=== PATIENT | female | born 1995 | race Caucasian/White ===

== ENCOUNTER 2017-07-23 22:37 | Emergency (ER) | payer SELFPAY ==
[~2017-07-23] VITALS: Ht 165.1 cm; Wt 49.9 kg
--- NOTE | 2017-07-23 23:11 | Emergency Room Report ---
History of Present Illness General Chief Complaint: Complications Source: Patient Present Illness HPI Vaginal spotting Patient reports being at doctor's office today had ultrasound performed which showed approximately eight-week Later on in the discussion patient now reports that she was at [facility] with possibility of having However she did not go through with that and was leading to return on Saturday Patient did have a talk ultrasound performed she is a with a previous medical several years ago The son reports 3/10 cramping lower suprapubic area denies any vomiting or diarrhea denies any chest pressures of breath Allergies: Coded Allergies: No Known Allergies (Unverified , 07/23/17) Patient History Past Medical History: see triage record Pertinent Family History: none Now: Yes : 2 Para: 0 Reviewed Nursing Documentation: PMH: Agreed, PSxH: Agreed Nursing Documentation-PMH Past Medical History: No Stated History Review of Systems All Other Systems: negative except mentioned in HPI Physical Exam Vital Signs Date Time Temp Pulse Resp B/P (MAP) Pulse Ox O2 Delivery O2 Flow Rate FiO2 07/23/17 22:42 97.7 70 20 127/75 99 Room Air Sp02 EP Interpretation: reviewed, normal General Appearance: well appearing, no apparent distress Head: normocephalic, atraumatic Eyes: bilateral eye PERRL, bilateral eye EOMI ENT: hearing grossly normal, normal pharynx, TMs + canals normal, uvula midline Neck: full range of motion, supple, no meningismus, no bony tend Respiratory: lungs clear, normal breath sounds, no rhonchi, no respiratory distress, no retraction, no accessory muscle use Cardiovascular #1: normal peripheral pulses, regular rate, rhythm, no edema, no gallop, no JVD, no murmur Gastrointestinal: normal bowel sounds, non tender, soft, no mass, no organomegaly, non-distended, no guarding, no hernia, no pulsatile mass, no rebound Genitourinary: no CVA tenderness Musculoskeletal: normal inspection Neurologic: oriented x3, responsive, bridge rigger III-XII nml as tested, motor strength/ tone normal, sensory intact Psychiatric: mood/affect normal Skin: normal color, no rash, warm/dry, palpation normal Lymphatic: normal inspection, no adenopathy Medical Decision Making Diagnostic Impression: Primary Impression: Threatened ER Course With the patient's history and examination, multiple differentials considered, including but not limited to , ectopic , ovarian torsion, gastritis, cholecystitis, pancreatitis, appendicitis Patient's ultrasound was performed as we do not have any official report from her previous that was done earlier today There is an intrauterine seen with heart tones There was some complication obtaining the patient's full blood work therefore we did not have a beta Quant, however the patient did have blood work obtained earlier this morning and will have close outpatient followup, , Labs Test 07/23/17 22:45 Urine Color Yellow Urine Appearance Clear Urine pH 6 (4.5-8.0) Urine Specific [place] 1.025 (1.005-1.035) Urine Protein Negative (NEGATIVE) Urine Glucose (UA) Negative (NEGATIVE) Urine Ketones Negative (NEGATIVE) Urine Occult Blood 4+ (NEGATIVE) Urine Nitrite Negative (NEGATIVE) Urine Bilirubin Negative (NEGATIVE) Urine Urobilinogen Normal MG/DL (0.0-1.0) Urine Leukocyte Esterase Negative (NEGATIVE) Urine RBC 2-4 /HPF (0 - 2) Urine WBC 0-2 /HPF (0 - 2) Urine Squamous Epithelial Cells Moderate /LPF (NONE/OCC) CT/MRI/US Diagnostic Results CT/MRI/US Diagnostic Results : Impression Pelvic ultrasound: Reports a report for full specifics, intrauterine seen, positive heart tones at 144 Last Vital Signs Date Time Temp Pulse Resp B/P (MAP) Pulse Ox O2 Delivery O2 Flow Rate FiO2 07/23/17 22:42 97.7 70 20 127/75 99 Room Air Status: improved Disposition: HOME, SELF-CARE Condition: Improved Additional Instructions: Patient is provided with the discharge instructions notified to follow up with primary doctor in the next 2-3 days otherwise return to the er with any worsening symptoms. Please note that this report is being documented using [employer] technology. This can lead to erroneous entry secondary to incorrect interpretation by the dictating instrument. MIAN MIRELES D.O. Jul 23, 2017 23:10
[2017-07-23 23:49] LABS: APPEARANCE,URINE CLEAR; KETONES,URINE NEGATIVE (NEGATIVE); LEUKOCYTE ESTERASE ,URINE NEGATIVE (NEGATIVE); NITRITE,URINE NEGATIVE (NEGATIVE); PH,URINE 6 (4.5-8.0); PROTEIN,URINE NEGATIVE (NEGATIVE); UROBILINOGEN,URINE NORMAL MG/DL (0.0-1.0)
[2017-07-24 00:06] LABS: WBC,URINE 0-2 /HPF (0 - 2)
[2017-07-24 00:07] LABS: SQUAMOUS EPITHELIAL CELL,UR MODERATE /LPF (NONE/OCC)
[2017-07-24 00:49] VITALS: BP 122/70
--- NOTE | 2017-07-24 10:55 | Diagnostic Imaging Report ---
Indication: Bleeding, patient Technique: Transabdominal and transvaginal images Comparison: None Findings: Uterus measures 9.4 cm in length by 4.8 cm AP. Within the endometrium there is a gestational sac. This contains a pole with crown-rump length of 7.7 mm, corresponding to an estimated gestational age 6 weeks 5 days. Is positive heart activity, heart rate 144 beats for minute. There is a yolk sac demonstrated. Small subchorionic hemorrhage is noted. No myometrial abnormality. Left ovary measures 18 mm in length. Right ovary measures 31 mm in length. No adnexal mass. No free cul-de-sac fluid Impression: 6 week 5 day, by crown-rump length, single live intrauterine Positive for small subchorionic hemorrhage Negative for adnexal mass
[2017-07-24 12:43] LABS: BACTERIA,URINE FEW /HPF
== END 2017-07-24 00:51 | disposition home or self-care (01) ==
LOC: EMR 23:25
DX: O20.0 Threatened abortion (principal); Z3A.08 8 weeks gestation of pregnancy
CPT/HCPCS: 36415; 76801; 76830; 81003; 86850; 86900; 86901; 99283